=== PATIENT | female | born 1985 | race Two or more races ===

== ENCOUNTER 2017-01-05 16:50 | Inpatient (IN) | payer MEDICAID ==
[~2017-01-05] VITALS: Ht 167.6 cm; Wt 132.8 kg
[2017-01-05 17:55] LABS: Urine Bilirubin Negative (Negative); Urine Color Yellow (Yellow); Urine Glucose Normal (Normal); Urine Ketone Negative (Negative); Urine Nitrite Negative (Negative); Urine RBC 19 /hpf (0 - 4); Urine Squamous Epithelial Cell FEW /hpf (<5); Urine Urobilinogen Normal (Negative); Urine pH 6.5 (5.0-8.0)
[2017-01-05 17:57] LABS: Urine Blood 1+ /uL (Negative)
[2017-01-05 18:17] LABS: Basophils # (auto) 0.1 uL; Basophils % (auto) 0.7 % (0.0-2.0); Eosinophils # (auto) 0 uL; Eosinophils % (auto) 0.4 % (0.0-7.0); Hematocrit 37.9 % (36.0-46.0); Hemoglobin 12.9 g/dL (12.2-16.2); Lymphocytes # (auto) 2.4 uL; Mean Corpuscular Hemoglobin 29.4 pg (28.0-32.0); Mean Corpuscular Hgb Conc. 33.9 g/dL (32.0-36.0); Mean Corpuscular Volume 86.5 fL (80.0-100.0); Monocytes # (auto) 0.4 uL; Monocytes % (auto) 3.7 % (0.0-12.0); Neutrophils % (auto) 71.2 % (37.0-80.0); Platelet Count (auto) 320 10^3/uL (140-450); Red Cell Distribution Width 13.8 % (11.6-16.0); White Blood Cell 9.8 10^3/uL (4.4-10.8)
[2017-01-05 18:24] LABS: Albumin 3.8 g/dL (3.4-5.0); BUN/Creatinine Ratio 8.8; Calcium 8.6 mg/dL (8.5-10.1); Potassium 3.8 mmol/L (3.5-5.1)
[2017-01-05 18:27] LABS: Bilirubin, Total 0.6 mg/dL (0.2-1.0); Total Protein 8.2 g/dL (6.4-8.2)
[2017-01-05] MEDS ORDERED: ONDANSETRON ODT 4 MG TAB PO ONE (22:15)
[2017-01-05] MEDS ORDERED: NALBUPHINE HCL 10 MG/1ml INJECTION IV ONE (23:00)
[2017-01-05] MEDS ORDERED: SODIUM CHLORIDE 0.9% 1,000 ML IV ONE (23:00)
[2017-01-05] MEDS ORDERED: ONDANSETRON HCL 4 MG/2 ML VIAL IV ONE (23:00)
[2017-01-06] MEDS ORDERED: NITROFURANTOIN (MONO) 100 mg CAP PO ONE ×2 (02:15→10:00)
[2017-01-06] MEDS ORDERED: SODIUM CHLORIDE 0.9% 250 ML IV ONE (02:58)
[2017-01-06] MEDS ORDERED: SODIUM CHLORIDE 0.9% 1,000 ML IV ONE (02:58)
[2017-01-06] MEDS ORDERED: KETOROLAC TROMETH 30 MG/ML 1ML VIAL IV ONE (03:00)
[2017-01-06] MEDS ORDERED: MORPHINE SULF INJ 2 MG/ML SYRINGE 1ML IV PRN (03:30)
[2017-01-06] MEDS ORDERED: TEMAZEPAM 15 MG CAP PO PRN (03:30)
[2017-01-06 05:18] VITALS: BP 142/86
[2017-01-06 08:00] VITALS: BP 142/86
[2017-01-06] MEDS: SODIUM CHLORIDE 0.9% 1,000 ML IV SCH ×3 (08:01→13:25)
[2017-01-06 09:00] VITALS: BP 112/63
[2017-01-06] MEDS: NITROFURANTOIN (MONO) 100 mg CAP PO SCH ×2 (10:00→21:35)
[2017-01-06] MEDS: ZINC SULFATE 220 MG CAP PO SCH (10:00)
[2017-01-06] MEDS ORDERED: ENOXAPARIN SOD 30 MG/0.3 ML SYRINGE SC SCH (10:00)
[2017-01-06] MEDS: MULTIPLE VITAMIN TAB PO SCH (10:01)
[2017-01-06] MEDS: FAMOTIDINE 20 MG TAB PO SCH ×2 (10:01→21:35)
[2017-01-06] MEDS: ASCORBIC ACID 500 MG TAB PO SCH ×2 (10:01→21:35)
[2017-01-06] MEDS: ENOXAPARIN SOD 40 MG/0.4 ML SYRINGE SC SCH (10:02)
[2017-01-06 13:00] VITALS: BP 129/75
[2017-01-06] MEDS: ONDANSETRON HCL 4 MG/2 ML VIAL IV PRN (13:47)
[2017-01-06 17:00] VITALS: BP 131/77
[2017-01-06 22:00] VITALS: BP 118/72
[2017-01-07] MEDS: SODIUM CHLORIDE 0.9% 1,000 ML IV SCH ×3 (02:36→18:49)
[2017-01-07 05:00] VITALS: BP 114/65
[2017-01-07 05:57] LABS: Basophils # (auto) 0.1 uL; Basophils % (auto) 0.9 % (0.0-2.0); Eosinophils # (auto) 0.1 uL; Eosinophils % (auto) 1.3 % (0.0-7.0); Hematocrit 33.2 % (36.0-46.0); Hemoglobin 11.3 g/dL (12.2-16.2); Lymphocytes # (auto) 2.7 uL; Lymphocytes % (auto) 31.1 % (10.0-50.0); Mean Corpuscular Hemoglobin 29.4 pg (28.0-32.0); Mean Corpuscular Hgb Conc. 34.2 g/dL (32.0-36.0); Mean Corpuscular Volume 86.1 fL (80.0-100.0); Mean Platelet Volume 9.1 fL (7.4-10.4); Monocytes # (auto) 0.5 uL; Monocytes % (auto) 6.1 % (0.0-12.0); Neutrophils # (auto) 5.4 uL; Neutrophils % (auto) 60.6 % (37.0-80.0); Platelet Count (auto) 268 10^3/uL (140-450); Red Cell Distribution Width 14.1 % (11.6-16.0); White Blood Cell 8.8 10^3/uL (4.4-10.8)
[2017-01-07 06:14] LABS: BUN/Creatinine Ratio 11.8; Bilirubin, Total 0.6 mg/dL (0.2-1.0); Potassium 3.8 mmol/L (3.5-5.1); Total Protein 6.8 g/dL (6.4-8.2)
[2017-01-07 09:00] VITALS: BP 121/61
[2017-01-07] MEDS: ENOXAPARIN SOD 40 MG/0.4 ML SYRINGE SC SCH (10:47)
[2017-01-07] MEDS: MULTIPLE VITAMIN TAB PO SCH (10:47)
[2017-01-07] MEDS: ACETAMINOPHEN 325 MG TAB PO PRN ×2 (10:47→16:44)
[2017-01-07] MEDS: FAMOTIDINE 20 MG TAB PO SCH ×2 (10:47→21:43)
[2017-01-07] MEDS: ASCORBIC ACID 500 MG TAB PO SCH ×2 (10:47→21:43)
[2017-01-07] MEDS: NITROFURANTOIN (MONO) 100 mg CAP PO SCH ×2 (10:48→21:42)
[2017-01-07] MEDS: ZINC SULFATE 220 MG CAP PO SCH (10:48)
[2017-01-07] MEDS: ONDANSETRON HCL 4 MG/2 ML VIAL IV PRN (11:30)
[2017-01-07 13:00] VITALS: BP 123/54
[2017-01-07] MEDS: TAMSULOSIN HYDROCHLORIDE 0.4 MG CAP PO SCH (15:14)
[2017-01-07 17:00] VITALS: BP 134/70
[2017-01-07 21:49] VITALS: BP 132/77
[2017-01-08] VITALS (7 sets, daily range): BP systolic 109–148; BP diastolic 59–77
[2017-01-08] MEDS: SODIUM CHLORIDE 0.9% 1,000 ML IV SCH (02:43)
[2017-01-08] MEDS: MORPHINE SULF INJ 2 MG/ML SYRINGE 1ML IV PRN ×2 (03:39→13:23)
[2017-01-08] MEDS: ONDANSETRON HCL 4 MG/2 ML VIAL IV PRN ×4 (03:41→22:15)
[2017-01-08 05:55] LABS: Basophils # (auto) 0.1 uL; Basophils % (auto) 0.8 % (0.0-2.0); Eosinophils # (auto) 0.1 uL; Eosinophils % (auto) 1.7 % (0.0-7.0); Hematocrit 34.2 % (36.0-46.0); Hemoglobin 11.3 g/dL (12.2-16.2); Lymphocytes # (auto) 2.9 uL; Lymphocytes % (auto) 32.9 % (10.0-50.0); Mean Corpuscular Hemoglobin 29.1 pg (28.0-32.0); Mean Corpuscular Hgb Conc. 33.1 g/dL (32.0-36.0); Mean Corpuscular Volume 87.8 fL (80.0-100.0); Mean Platelet Volume 9.4 fL (7.4-10.4); Monocytes # (auto) 0.5 uL; Monocytes % (auto) 6.3 % (0.0-12.0); Neutrophils # (auto) 5.1 uL; Neutrophils % (auto) 58.3 % (37.0-80.0); Platelet Count (auto) 255 10^3/uL (140-450); Red Cell Distribution Width 14.1 % (11.6-16.0); White Blood Cell 8.7 10^3/uL (4.4-10.8)
[2017-01-08 06:17] LABS: Potassium 3.3 mmol/L (3.5-5.1)
[2017-01-08 06:25] LABS: BUN/Creatinine Ratio 12.6; Calcium 7.9 mg/dL (8.5-10.1); Magnesium 2.2 mg/dL (1.6-2.6)
[2017-01-08] MEDS: ENOXAPARIN SOD 40 MG/0.4 ML SYRINGE SC SCH (09:05)
[2017-01-08] MEDS: ZINC SULFATE 220 MG CAP PO SCH (09:06)
[2017-01-08] MEDS: ASCORBIC ACID 500 MG TAB PO SCH ×2 (09:06→22:04)
[2017-01-08] MEDS: NITROFURANTOIN (MONO) 100 mg CAP PO SCH ×2 (09:06→22:04)
[2017-01-08] MEDS: FAMOTIDINE 20 MG TAB PO SCH ×2 (09:06→22:04)
[2017-01-08] MEDS: SOD CHL 0.9%/ KCL 20MEQ 1,000 ML IV SCH ×2 (09:45→23:11)
[2017-01-08] MEDS ORDERED: POTASSIUM CHLORIDE 40 MEQ, LIDOCAINE 1% (LOCAL ANESTH.) 4 ML in SODIUM CHL 0.9% 250 ML IV ONE (10:15)
[2017-01-08 10:58] LABS: INR 0.97 (0.9-1.15); Partial Thromboplastin Time 30.3 sec (22.64-33.71); Prothrombin Time 10.5 sec (9.37-12.3)
[2017-01-08] MEDS: MULTIPLE VITAMIN TAB PO SCH (13:23)
[2017-01-08] MEDS: TAMSULOSIN HYDROCHLORIDE 0.4 MG CAP PO SCH (17:24)
[2017-01-09 05:30] VITALS: BP 109/58
[2017-01-09 08:00] VITALS: BP 102/51
[2017-01-09] MEDS ORDERED: ceFAZolin 1GM/50ML D5W 50 ML IV ONE (08:00)
[2017-01-09] MEDS ORDERED: fentaNYL CITRATE 100 MCG/2 ML VL ONE (09:01)
[2017-01-09] MEDS ORDERED: ONDANSETRON HCL 4 MG/2 ML VIAL ONE (09:02)
[2017-01-09] MEDS ORDERED: PROPOFOL 10 MG/ML 20 ML IV ONE (09:02)
[2017-01-09] MEDS ORDERED: MIDAZOLAM HCL 1MG/1ML-2 ML VIAL ONE (09:02)
[2017-01-09 09:04] VITALS: BP 102/51
[2017-01-09] MEDS ORDERED: IOHEXOL 300 MG/ML 100ML BOTTLE IJ ONE (09:11)
[2017-01-09] MEDS ORDERED: KETOROLAC TROMETH 30 MG/ML 1ML VIAL IV ONE (09:30)
[2017-01-09] MEDS ORDERED: HYDROmorphone HCL 2 MG/ML VL IV PRN (09:30)
[2017-01-09] MEDS ORDERED: METOCLOPRAMIDE HCL 5MG/ml INJ 2ml VIAL IV ONE (09:30)
[2017-01-09] MEDS ORDERED: IOHEXOL 300 MG/ML 75ml BOTTLE IJ ONE (09:56)
[2017-01-09] MEDS ORDERED: NITR-48 PO (10:09)
[2017-01-09 12:41] VITALS: BP 102/51
[2017-01-09 13:00] VITALS: BP 113/74
[2017-01-09] MEDS: NITROFURANTOIN (MONO) 100 mg CAP PO SCH (13:04)
[2017-01-09] MEDS: ASCORBIC ACID 500 MG TAB PO SCH (13:04)
[2017-01-09] MEDS: ZINC SULFATE 220 MG CAP PO SCH (13:04)
[2017-01-09] MEDS: MULTIPLE VITAMIN TAB PO SCH (13:04)
[2017-01-09] MEDS: FAMOTIDINE 20 MG TAB PO SCH (13:04)
== END 2017-01-09 14:00 | disposition home or self-care (01) | DRG 446 ==
LOC: ER 16:58 → CENTRAL 16:59
PROVIDERS: ADMIT Emergency Medicine; ATTEND Internal Medicine
PROC: 0TC68ZZ Extirpation of Matter from Right Ureter, Via Natural or Artificial Opening Endoscopic (ICD-10-PCS; 2017-01-09)
PROC: 0T768DZ Dilation of Right Ureter with Intraluminal Device, Via Natural or Artificial Opening Endoscopic (ICD-10-PCS; 2017-01-09)
PROC: BT141ZZ Fluoroscopy of Kidneys, Ureters and Bladder using Low Osmolar Contrast (ICD-10-PCS; principal; 2017-01-09 09:34)
DX: N13.2 Hydronephrosis with renal and ureteral calculous obstruction (principal); K76.0 Fatty (change of) liver, not elsewhere classified; N39.0 Urinary tract infection, site not specified; E66.01 Morbid (severe) obesity due to excess calories; Z90.49 Acquired absence of other specified parts of digestive tract; Z68.42 Body mass index [BMI] 45.0-49.9, adult; F17.210 Nicotine dependence, cigarettes, uncomplicated; Z82.49 Family history of ischemic heart disease and other diseases of the circulatory system; Z83.3 Family history of diabetes mellitus; Z87.442 Personal history of urinary calculi; Z84.89 Family history of other specified conditions
CPT/HCPCS: 36415; 74000; 74176; 74420; 76000; 80048; 80053; 81001; 81025; 83735; 84132; 85025; 85610; 85730; 87086; 96361; 96374; 96375; J0690; J1885; J2001; J2250; J2405; J2704; Q0162